=== PATIENT | male | born 1975 | race Two or more races ===

== ENCOUNTER 2024-09-19 15:45 | Inpatient (IN) | payer MEDICAID, OTHER ==
[~2024-09-19] VITALS: Ht 180.3 cm; Wt 75.2 kg
[2024-09-19] MEDS ORDERED: KETOROLAC TROMETH 60MG/2ML VIAL IM ONE (16:15)
--- NOTE | 2024-09-19 16:15 | ED.PDOC ---
GI ASSESSMENT HPI Comments 49 y/o M, with no prior medical history presents to the ED for CC of abdominal pain. Patient states, that he has been experiencing suprapubic abdominal pain that radiates to his bilateral lower back x1week. Patient complains of current 03/14 pain. Patient comments, that he has been taking Tylenol extra strength; with no relief. Patient denies nausea, vomiting, diarrhea, change in diet, fever, or chills. No other associated symptoms, modifiers, recent injuries or sick contacts present at this time. Time Seen by MD: 16:00 Reviewed Notes: Nurses Notes, Medications, Allergies Allergies: Coded Allergies: NO KNOWN ALLERGIES (Unverified , 09/19/24) Information Source: Patient Timing: Weeks Duration: Since onset Prehospital treatment: None Quality: Burning Vomitus: None Stool: Normal Severity: Moderate Recent: None Recent Hx of: None Pain Location: Suprapubic Modifying Factors: Nothing Associated sign and symptoms: None Past Medical History PAST MEDICAL HISTORY: Denies Surgical History: Denies all surgeries Family History Family History: Unknown Social History Smoker: Non-Smoker Alcohol: Denies ETOH Use Drugs: Denies Drug Use Lives In: Home Constitutional: denies: chills, diaphoresis, fatigue, fever, malaise, sweats, weakness, others EENTM: denies: blurred vision, double vision, ear bleeding, ear discharge, ear drainage, ear pain, ear ringing, eye pain, eye redness, hearing loss, mouth pain, mouth swelling, nasal discharge, nose bleeding, nose congestion, nose pain, photophobia, tearing, throat pain, throat swelling, voice changes, others Respiratory: denies: cough, hemoptysis, orthopnea, SOB at rest, shortness of breath, SOB with excertion, stridor, wheezing, others Cardiovascular: denies: chest pain, dizzy spells, diaphoresis, Dyspnea on exertion, edema, irregular heart beat, left arm pain, lightheadedness, palpitations, PND, syncope, others Gastrointestinal: reports: abdominal pain; denies: abdomen distended, blood streaked bowels, constipated, diarrhea, dysphagia, difficulty swallowing, hematemesis, melena, nausea, poor appetite, poor fluid intake, rectal bleeding, rectal pain, vomiting, others Genitourinary: reports: flank pain; denies: burning, dysuria, frequency, hematuria, incontinence, penile discharge, penile sore, pain, testicle pain, testicle swelling, urgency, others Neurological: denies: dizziness, fainting, headache, left sided numbness, left sided weakness, numbness, paresthesia, pre-existing deficit, right sided numbness, right sided weakness, seizure, speech problems, tingling, tremors, weakness, others Musculoskeletal: reports: back pain; denies: gout, joint pain, joint swelling, muscle pain, muscle stiffness, neck pain, others Integumetry: denies: bruises, change in color, change in hair/nails, dryness, laceration, lesions, lumps, rash, wounds, others Allergic/Immunocompromised: denies: Difficulty Healing, Frequent Infections, Hives, Itching, others Hematologic/Lymphatic: denies: anemia, blood clots, easy bleeding, easy bruising, swollen glands, others Endocrine: denies: excessive hunger, excessive sweating, excessive thirst, excessive urination, flushing, intolerance to cold, intolerance to heat, unexplained weight gain, unexplained weight loss, others Psychiatric: denies: anxiety, bipolar disorder, depression, hopeless, panic disorder, schizophrenia, sleepless, suicidal, others All Other Systems: Reviewed and Negative Physical Exam General Appearance: Moderate Distress (Moderate distress due to bilateral flank and abdominal pain concerns.), Normal HEENT: Normal ENT Inspection, Pharynx Normal, TMs Normal Neck: Full Range of Motion, Non-Tender, Normal, Normal Inspection Respiratory: Chest Non-Tender, Lungs Clear, No Accessory Muscle Use, No Respiratory Distress, Normal Breath Sounds Cardiovascular: No Edema, No JVD, No Murmur, No Gallop, Normal Peripheral Pulses, Regular Rate/Rhythm Breast Exam: Deferred Gastrointestinal: Other ( Diffuse bilateral flank pain extending into the abdomen. No definitive CVA tenderness. No pulsatile masses. No signs of trauma.) Genitalia: Deferred Pelvic: Deferred Rectal: Deferred Extremities: No calf tenderness, Normal capillary refill, Normal inspection, Normal range of motion, Non-tender, No pedal edema Neurologic: Alert, No Motor Deficits, Normal Affect, Normal Mood, No Sensory Deficits Cerebellar Function: Normal Reflexes: Normal Skin: Dry, Normal Color, Warm Lymphatic: No Adenopathy Was a procedure done? Was a procedure done?: No GI differential Dx Differential Diagnosis: Appendicitis, Cholangitis, Cholecystitis, Pancreatitis, Urolithiasis, Kidney Stone, Other ( Hyperglycemia, DKA) X-Ray, Labs, Meds, VS Vital Signs Date Time Temp Pulse Resp B/P (MAP) Pulse Ox O2 Delivery O2 Flow Rate FiO2 09/19/24 16:25 96.2 111 20 158/129 (139) 98 96.2 Lab Test 09/19/24 16:24 09/19/24 16:11 Range/Units White Blood Count 10.4 4.4-10.8 10^3/uL Red Blood Count 5.84 4.5-5.90 10^6/uL Hemoglobin 18.1 H 13.5-17.5 g/dL Hematocrit 50.0 41.0-53.0 % Mean Corpuscular Volume 85.6 80.0-100.0 fL Mean Corpuscular Hemoglobin 31.0 28.0-32.0 pg Mean Corpuscular Hemoglobin Concent 36.2 H 32.0-36.0 g/dL Red Cell Distribution Width 13.3 11.8-14.3 % Platelet Count 340 140-450 10^3/uL Mean Platelet Volume 8.1 6.9-10.8 fL Neutrophils (%) (Auto) 74.0 37.0-80.0 % Lymphocytes (%) (Auto) 21.1 10.0-50.0 % Monocytes (%) (Auto) 3.9 0.0-12.0 % Eosinophils (%) (Auto) 0.4 0.0-7.0 % Basophils (%) (Auto) 0.6 0.0-2.0 % Neutrophils # (Auto) 7.7 1.6-8.6 10 ^3/uL Lymphocytes # (Auto) 2.2 0.4-5.4 10 ^3/uL Monocytes # (Auto) 0.4 0-1.3 10 ^3/uL Eosinophils # (Auto) 0 0-0.8 10 ^3/uL Basophils # (Auto) 0.1 0-0.2 10 ^3/uL Nucleated Red Blood Cells 0.1 % Sodium Level 130 L 136-145 mmol/L Potassium Level 3.9 3.5-5.1 mmol/L Chloride Level 94 L 98-107 mmol/L Carbon Dioxide Level 26 20-31 mmol/L Anion Gap 10 5-15 Blood Urea Nitrogen 14 9-23 mg/dL Creatinine 1.06 0.700-1.30 mg/dL Glomerular Filtration Rate Calc 86 >90 mL/min BUN/Creatinine Ratio 13.2 10.0-20.0 Serum Glucose 562 *H 74-106 mg/dL Calcium Level 10.1 8.7-10.4 mg/dL Lipase 34 12-53 U/L Urine Color Light-yellow Yellow Urine Clarity Clear Clear Urine pH 5.0 5.0-9.0 Urine Specific [place] 1.036 H 1.001-1.035 Urine Protein Negative Negative Urine Ketones Trace Negative Urine Blood Negative Negative /uL Urine Nitrite Negative Negative Urine Bilirubin Negative Negative Urine Urobilinogen Normal Negative mg/dL Urine Leukocyte Esterase Negative Negative /uL Urine RBC 1 0 - 3 /hpf Urine Microscopic WBC < 1 0-3 /HPF Urine Squamous Epithelial Cells None seen <5 /hpf Urine Bacteria None seen None Seen /hpf Urine Glucose 4+ H Normal mg/dL [place] [id number] Ph: [phone] DIAGNOSTIC IMAGING Diagnostic Imaging Report : [id number] Signed PATIENT: RAFA POWERSCCT: [id number] UNIT: [id number] : 1975 LOC: ER ROOM / BED: / AGE / SEX: 49 / M ADM STATUS: REG ER SERVICE [id number] ORDERING PHYSICIAN: JOSEPH DWYER PAC PROCEDURE(s): ABPL - CT AB PEL WO CON-NO ORAL OR IV REASON: Diffuse abdominal pain ORDER NUMBER(s): [id number], ACCESSION NUMBER(s): [id number] Exam: CT CT AB PEL WO CON-NO ORAL OR IV History: Diffuse abdominal pain Comparison Study: None available at time of dictation. TECHNIQUE: Multidetector CT of the abdomen was performed from lung bases to pubic symphysis. Imaging was performed without IV contrast. Axial, coronal and sagittal multiplanar reformats were obtained from the axial data set by the technologist. Radiation Dose Information: CT Dose: CTDI volume is 7.3 mGy. Dose-length product is 421.91 mGy*cm FINDINGS: Evaluation of solid organs is limited due to lack of intravenous contrast use. Findings: Lung Bases: No acute or significant lung base finding. Normal heart size. No pleural or pericardial effusion. Liver: The liver is normal in size. No focal lesions. Gallbladder and Biliary Tree: Unremarkable Spleen: Unremarkable Pancreas: The pancreas is grossly normal in appearance. Adrenal Glands: Unremarkable Kidneys: Kidneys are grossly normal without calculi or hydronephrosis. Bladder: Grossly unremarkable for degree of distention. Bowel: The stomach is grossly normal in appearance. Small bowel and colon are normal in caliber and distribution. The appendix is not visualized; however, no secondary findings of acute appendicitis identified. Ascites: Absent Lymphadenopathy: No mesenteric, retroperitoneal or periportal lymphadenopathy. Abdominal Wall and Mesentery: Unremarkable. Vasculature: The visualized abdominal aorta is normal in size and caliber. Evaluation of abdominal and pelvic vessels is limited due to lack of intravenous contrast. Pelvic Organs: Unremarkable Musculoskeletal: No aggressive focal bony lesions, acute fractures or dislocation. Soft tissues: Unremarkable IMPRESSION: 1. No abnormally distended colon or small bowel to suggest bowel obstruction. Stool is noted throughout the colon. 2. No calcified gallstones 3. No nephrolithiasis or hydronephrosis. 4. No free air or free fluid. Radiation optimization: All CT scans at this facility use at least one of these dose optimization techniques: automated exposure control mA and/or kV adjustment per patient size (includes targeted exams where dose is matched to clinical indication) or iterative reconstruction. ATED BY: HAYLEY TSE Jr., DO DICTATED DATE/TIME: 09/19/241655 SIGNED BY: HAYLEY TSE Jr., SIGNED DATE/TIME: 09/19/241655 CC: X-Ray, Labs, Meds, VS Comment All studies performed the ED were evaluated by me personally. Patient's serum laboratories revealed a hyponatremia state as well as a significant hyperglycemic state. Patient will be admitted for Electrolyte management, blood sugar stabilization and assistance with proper diabetic medication management. Time of 1ST Reevaluation: 23:42 Reevaluation 1ST: Improved Consultation: PCP Patient Education/Counseling: Diagnosis, Treatment Family Education/Counseling: Diagnosis, Treatment, No Family Present Departure 1 Departure Time of Disposition: 23:42 Impression: Primary Impression: Hyperglycemia Disposition: 09 ADMITTED INPATIENT Condition: Stable Discharged With: Self Critical Care Note Critical Care Time?: No Stability Stability form required: No Heart Score Heart Score: Heart Score Response (Comments) Value History N/A 0 EKG N/A 0 Age N/A 0 Risk Factors N/A 0 Troponin N/A 0 Total 0 I personally scribed for JOSEPH DWYER PAC ([email or web address]) on 09/19/24 at 16:15. Electronically submitted by Alesha Ta ([email or web address]). I personally scribed for JOSEPH DWYER PAC ([email or web address]) on 09/19/24 at 17:03. Electronically submitted by Alesha Ta [email or web address]). JOSEPH DWYER PAC Sep 19, 2024 16:15
[2024-09-19 16:39] LABS: Urine Bacteria None Seen /hpf (None Seen)
[2024-09-19 16:48] LABS: Basophils # (auto) 0.1 10 ^3/uL (0-0.2); Basophils % (auto) 0.6 % (0.0-2.0); Eosinophils # (auto) 0 10 ^3/uL (0-0.8); Eosinophils % (auto) 0.4 % (0.0-7.0); Hemoglobin 18.1 g/dL (13.5-17.5); Lymphocytes # (auto) 2.2 10 ^3/uL (0.4-5.4); Lymphocytes % (auto) 21.1 % (10.0-50.0); Mean Corpuscular Hgb Conc. 36.2 g/dL (32.0-36.0); Mean Corpuscular Volume 85.6 fL (80.0-100.0); Monocytes # (auto) 0.4 10 ^3/uL (0-1.3); Monocytes % (auto) 3.9 % (0.0-12.0); Neutrophils # (auto) 7.7 10 ^3/uL (1.6-8.6); Nucleated Red Blood Cells % 0.1 %; Platelet Count (auto) 340 10^3/uL (140-450); Red Blood Cells 5.84 10^6/uL (4.5-5.90); Red Cell Distribution Width 13.3 % (11.8-14.3); White Blood Cell 10.4 10^3/uL (4.4-10.8)
[2024-09-19 16:49] LABS: Urine Blood Negative /uL (Negative); Urine Clarity Clear (Clear); Urine Color Light-Yellow (Yellow); Urine Protein, UAD Negative (Negative); Urine Specific Gravity 1.036 (1.001-1.035); Urine Squamous Epithelial Cell None Seen /hpf (<5); Urine Urobilinogen Normal (Negative); Urine WBC < 1 /HPF (0-3)
[2024-09-19 16:57] LABS: Potassium 3.9 mmol/L (3.5-5.1)
[2024-09-19 16:58] LABS: Anion Gap 10 (5-15); Calcium 10.1 mg/dL (8.7-10.4); Carbon Dioxide 26 mmol/L (20-31)
--- NOTE | 2024-09-19 16:59 | DVH ---
Exam: CT CT AB PEL WO CON-NO ORAL OR IV History: Diffuse abdominal pain Comparison Study: None available at time of dictation. TECHNIQUE: Multidetector CT of the abdomen was performed from lung bases to pubic symphysis. Imaging was performed without IV contrast. Axial, coronal and sagittal multiplanar reformats were obtained fr om the axial data set by the technologist. Radiation Dose Information: CT Dose: CTDI volume is 7.3 mGy. Dose-length product is 421.91 mGy*cm FINDINGS: Evaluation of solid organs is limited due to lack of intravenous contrast use. Findings: Lung Bases: No acute or significant lung base finding. Normal heart size. No pleural or pericardial effusion. Liver: The liver is normal in size. No focal lesions. Gallbladder and Biliary Tree: Unremarkable Spleen: Unremarkable Pancreas: The pancreas is grossly normal in appearance. Adrenal Glands: Unremarkable Kidneys: Kidneys are grossly normal without calculi or hydronephrosis. Bladder: Grossly unremarkable for degree of distention. Bowel: The stomach is grossly normal in appearance. Small bowel and colon are normal in caliber and d istribution. The appendix is not visualized; however, no secondary findings of acute appendicitis id entified. Ascites: Absent Lymphadenopathy: No mesenteric, retroperitoneal or periportal lymphadenopathy. Abdominal Wall and Mesentery: Unremarkable. Vasculature: The visualized abdominal aorta is normal in size and caliber. Evaluation of abdominal a nd pelvic vessels is limited due to lack of intravenous contrast. Pelvic Organs: Unremarkable Musculoskeletal: No aggressive focal bony lesions, acute fractures or dislocation. Soft tissues: Unremarkable IMPRESSION: 1. No abnormally distended colon or small bowel to suggest bowel obstruction. Stool is noted througho ut the colon. 2. No calcified gallstones 3. No nephrolithiasis or hydronephrosis. 4. No free air or free fluid. Radiation optimization: All CT scans at this facility use at least one of these dose optimization te chniques: automated exposure control mA and/or kV adjustment per patient size (includes targeted exa ms where dose is matched to clinical indication) or iterative reconstruction.
[2024-09-19 17:01] LABS: Chloride 94 mmol/L (98-107); Sodium 130 mmol/L (136-145)
[2024-09-19 17:03] LABS: BUN/Creatinine Ratio 13.2 (10.0-20.0); Blood Urea Nitrogen 14 mg/dL (9-23); Lipase 34 U/L (12-53)
[2024-09-19 17:18] LABS: Glucose 562 mg/dL (74-106)
--- NOTE | 2024-09-19 23:30 | DVHHPRES ---
History of Present Illness Resident Creating Document: MICHELLE HARRIS RESIDENT History of Present Illness Patient is a 49-year-old male with past medical history of dyslipidemia and GERD, who comes in due to abdominal pain. According to the patient and at bedside, patient has been experiencing and abdominal pain for the past 1 week, however, pain worsened today which is what prompted this visit to the hospital. He describes the pain as 10/10, constant, with radiation to bilateral flanks. He notes eating makes the pain worse, pain is relieved by taking medication. Of note, patient has been taking 800 mg of ibuprofen up to 4 times per day for the past 3 weeks. On review of systems patient is complaining of chills, shortness of breath, dysuria, urinary frequency, polydipsia, polyphagia. CT abdomen pelvis showed no abnormally distended colon or small bowel to suggest bowel obstruction. Stool was noted throughout the colon. No calcified gallstones. No nephrolithiasis or hydronephrosis. No free air or free fluid. Past Medical History Dyslipidemia, GERD Past Surgical History Denies Smoke: No ALCOHOL: none Drugs: None Review of Systems Constitutional: Yes: Chills; No: Fever, Sweats, Weakness, Malaise, Other Eyes: No: Pain, Vision change, Conjunctivae inflammation, Eyelid inflammation, Other, Redness ENT: No: Ear pain, Ear discharge, Nose pain, Nose discharge, Nose congestion, Mouth pain, Mouth swelling, Throat pain, Throat swelling, Other Respiratory: Shortness of breath; No: Cough, Dry, SOB with excertion, Wheezing, Hemoptysis, Pleuritic Pain, Sputum, Wheezing, Other Cardiovascular: No: Chest Pain, Palpitations, Orthopnea, Paroxysmal Noc. Dyspnea, Edema, Lt Headedness, Other Gastrointestinal: No: Nausea, Vomiting, Abdominal Pain, Diarrhea, Constipation, Melena, Hematochezia, Other Genitourinary: Dysuria, Frequency; No Incontinence, No Hematuria, No Retention, No Other Musculoskeletal: No: other, neck pain, shoulder pain, arm pain, back pain, hand pain, leg pain, foot pain Skin: No: Rash, Lesions, Jaundice, Bruising, Other Neurological: No: Weakness, Numbness, Incoordination, Change in speech, Confusion, Seizures, Other Allergies: Coded Allergies: NO KNOWN ALLERGIES (Unverified , 09/19/24) Exam Vital Signs Vital Signs Date Time Temp Pulse Resp B/P (MAP) Pulse Ox O2 Delivery O2 Flow Rate FiO2 09/19/24 16:25 96.2 111 20 158/129 (139) 98 96.2 General Appearance: Alert, Oriented X3, Cooperative, No acute distress HEENT: Atraumatic, PERRLA, EOMI, Other (Dry mucous membranes) Respiratory: Clear to auscultation, Normal air movement Cardiovascular: Regular rate, Normal S1, Normal S2 Abdominal: Normal bowel sounds, Other (Mild midepigastric tenderness to palpation) Extremities: No edema, Normal pulses Skin: No rashes, No significant lesion Neuro: Normal gait, Normal speech, Strength at 5/5 X4 ext, Sensation intact Psych/Mental Status: Mental status NL, Mood NL Labs/Xrays Labs Test 09/19/24 16:24 09/19/24 16:11 Range/Units White Blood Count 10.4 4.4-10.8 10^3/uL Red Blood Count 5.84 4.5-5.90 10^6/uL Hemoglobin 18.1 H 13.5-17.5 g/dL Hematocrit 50.0 41.0-53.0 % Mean Corpuscular Volume 85.6 80.0-100.0 fL Mean Corpuscular Hemoglobin 31.0 28.0-32.0 pg Mean Corpuscular Hemoglobin Concent 36.2 H 32.0-36.0 g/dL Red Cell Distribution Width 13.3 11.8-14.3 % Platelet Count 340 140-450 10^3/uL Mean Platelet Volume 8.1 6.9-10.8 fL Neutrophils (%) (Auto) 74.0 37.0-80.0 % Lymphocytes (%) (Auto) 21.1 10.0-50.0 % Monocytes (%) (Auto) 3.9 0.0-12.0 % Eosinophils (%) (Auto) 0.4 0.0-7.0 % Basophils (%) (Auto) 0.6 0.0-2.0 % Neutrophils # (Auto) 7.7 1.6-8.6 10 ^3/uL Lymphocytes # (Auto) 2.2 0.4-5.4 10 ^3/uL Monocytes # (Auto) 0.4 0-1.3 10 ^3/uL Eosinophils # (Auto) 0 0-0.8 10 ^3/uL Basophils # (Auto) 0.1 0-0.2 10 ^3/uL Nucleated Red Blood Cells 0.1 % Sodium Level 130 L 136-145 mmol/L Potassium Level 3.9 3.5-5.1 mmol/L Chloride Level 94 L 98-107 mmol/L Carbon Dioxide Level 26 20-31 mmol/L Anion Gap 10 5-15 Blood Urea Nitrogen 14 9-23 mg/dL Creatinine 1.06 0.700-1.30 mg/dL Glomerular Filtration Rate Calc 86 >90 mL/min BUN/Creatinine Ratio 13.2 10.0-20.0 Serum Glucose 562 *H 74-106 mg/dL Calcium Level 10.1 8.7-10.4 mg/dL Lipase 34 12-53 U/L Urine Color Light-yellow Yellow Urine Clarity Clear Clear Urine pH 5.0 5.0-9.0 Urine Specific [place] 1.036 H 1.001-1.035 Urine Protein Negative Negative Urine Ketones Trace Negative Urine Blood Negative Negative /uL Urine Nitrite Negative Negative Urine Bilirubin Negative Negative Urine Urobilinogen Normal Negative mg/dL Urine Leukocyte Esterase Negative Negative /uL Urine RBC 1 0 - 3 /hpf Urine Microscopic WBC < 1 0-3 /HPF Urine Squamous Epithelial Cells None seen <5 /hpf Urine Bacteria None seen None Seen /hpf Urine Glucose 4+ H Normal mg/dL Assessment/Plan Assessment/Plan Severe uncontrolled hyperglycemia without DKA or HHS Measured serum osmolality 311, calculated serum osmolality 296 Newly diagnosed diabetes Hypertension? - IV NS 1 L bolus, followed by IV NS at 100 cc/hour - insulin Lantus 11 units q.p.m. - insulin lispro 3 units t.i.d. before meals - aggressive sliding scale insulin - amlodipine 5 mg GERD Acute midepigastric abdominal pain, PUD can not be ruled out - CT abdomen pelvis:No abnormally distended colon or small bowel to suggest bowel obstruction. Stool is noted throughout the colon. No calcified gallstones No nephrolithiasis or hydronephrosis. No free air or free fluid. - IV Protonix 40 mg b.i.d. DVT prophylaxis: SCDs Goals of care: Full code, discussed for >16 minutes on 09/20/2024 Plan discussed with patient Plan discussed with Dr. Perales Plan discussed with: Patient, Spouse, Other (RN) Date of Service: Sep 19, 2024 Billing Provider: ROBERT PERALES MD Common Visit Codes: 41014-[id number] INP/OBS CARE (HIGH) MICHELLE HARRIS RESIDENT Sep 19, 2024 23:30 ROBERT PERALES MD Sep 20, 2024 10:13
[2024-09-20] MEDS: cloNIDine HCL 0.1 MG TAB PO ONE (00:36)
[2024-09-20] MEDS: SODIUM CHLORIDE 0.9% 1,000 ML IV ONE ×2 (00:39→09:30)
[2024-09-20] MEDS: SODIUM CHLORIDE 0.9% 1,000 ML IV SCH ×2 (00:45→09:30)
[2024-09-20] MEDS ORDERED: DEXTROSE (50%) 50ML SYRG IV PRN (00:45)
[2024-09-20 00:52] VITALS: PULSE 84; RESP 18; O2SAT 94
[2024-09-20] MEDS: InsuLIN REG 1unit/0.01ml Soln (100units/ml) IV ONE (00:57)
[2024-09-20] MEDS: amLODIPine BESYLATE 5 MG TAB PO ONE ×2 (00:57→05:00)
[2024-09-20] MEDS: INSULIN LANTUS (GLARGINE) 1 /0.01ml (100units/ml) SC SCH ×2 (01:04→10:41)
[2024-09-20] MEDS: PANTOPRAZOLE 40 MG/10 ML VIAL INJ IV SCH (01:05)
[2024-09-20] MEDS: ACETAMINOPHEN 325 MG TAB PO PRN (01:05)
[2024-09-20 01:32] LABS: Alanine Aminotransferase 22 U/L (7-40); Albumin 4.2 g/dL (3.2-4.8); Alkaline Phosphatase 108 U/L (46-116); Anion Gap 8 (5-15); BUN/Creatinine Ratio 13.1 (10.0-20.0); Blood Urea Nitrogen 11 mg/dL (9-23); Calcium 9.1 mg/dL (8.7-10.4); Carbon Dioxide 25 mmol/L (20-31); Chloride 100 mmol/L (98-107); Potassium 3.6 mmol/L (3.5-5.1); Total Protein 6.6 g/dL (5.7-8.2)
[2024-09-20 01:33] LABS: Bilirubin, Total 0.9 mg/dL (0.2-1.0)
[2024-09-20 01:36] LABS: Aspartate Aminotransferase < 8 U/L (13-40); Glucose 328 mg/dL (74-106); Sodium 133 mmol/L (136-145)
[2024-09-20 03:35] VITALS: BP 144/98; PULSE 68; RESP 17; TEMP 97.6; O2SAT 99
[2024-09-20 04:00] VITALS: PULSE 67
[2024-09-20] MEDS: ACCU-CHEK COMFORT CURVE STRIP VI SCH (04:12)
[2024-09-20] MEDS: InsuLIN REG 1unit/0.01ml Soln (100units/ml) SC SCH (04:16)
[2024-09-20 06:17] LABS: Basophils # (auto) 0.1 10 ^3/uL (0-0.2); Basophils % (auto) 0.7 % (0.0-2.0); Eosinophils # (auto) 0.1 10 ^3/uL (0-0.8); Eosinophils % (auto) 1.3 % (0.0-7.0); Hematocrit 42.6 % (41.0-53.0); Hemoglobin 15.3 g/dL (13.5-17.5); Lymphocytes # (auto) 3.2 10 ^3/uL (0.4-5.4); Lymphocytes % (auto) 41.5 % (10.0-50.0); Mean Corpuscular Hemoglobin 30.7 pg (28.0-32.0); Mean Corpuscular Hgb Conc. 35.9 g/dL (32.0-36.0); Mean Corpuscular Volume 85.6 fL (80.0-100.0); Monocytes # (auto) 0.5 10 ^3/uL (0-1.3); Monocytes % (auto) 6.7 % (0.0-12.0); Neutrophils # (auto) 3.9 10 ^3/uL (1.6-8.6); Neutrophils % (auto) 49.8 % (37.0-80.0); Nucleated Red Blood Cells % 0.2 %; Platelet Count (auto) 268 10^3/uL (140-450); Red Blood Cells 4.98 10^6/uL (4.5-5.90); Red Cell Distribution Width 13.6 % (11.8-14.3); White Blood Cell 7.8 10^3/uL (4.4-10.8)
[2024-09-20 06:35] LABS: Alanine Aminotransferase 21 U/L (7-40); Alkaline Phosphatase 93 U/L (46-116); Anion Gap 8 (5-15); Aspartate Aminotransferase < 8 U/L (13-40); BUN/Creatinine Ratio 14.5 (10.0-20.0); Bilirubin, Total 0.9 mg/dL (0.2-1.0); Blood Urea Nitrogen 12 mg/dL (9-23); Calcium 9.1 mg/dL (8.7-10.4); Carbon Dioxide 25 mmol/L (20-31); Chloride 102 mmol/L (98-107); Glucose 323 mg/dL (74-106); Potassium 3.8 mmol/L (3.5-5.1); Sodium 135 mmol/L (136-145); Total Protein 6.2 g/dL (5.7-8.2)
[2024-09-20] MEDS: INSULIN LISPRO (HUMAN) 100 UNITS/ML ML SC SCH (07:06)
[2024-09-20 08:20] VITALS: BP 127/82; PULSE 72; RESP 18; TEMP 97.9; O2SAT 98
[2024-09-20] MEDS: amLODIPine BESYLATE 5 MG TAB PO SCH (09:22)
[2024-09-20] MEDS: ENOXAPARIN SOD 40 MG/0.4 ML SYRINGE SC ONE (11:21)
[2024-09-20] MEDS: D5W/SOD CHL 0.45% 1,000 ML IV SCH (11:30)
[2024-09-20 13:00] VITALS: BP 115/74; PULSE 71; RESP 20; TEMP 97.5; O2SAT 98
[2024-09-20] MEDS ORDERED: METF-1145 PO (14:29)
[2024-09-20] MEDS ORDERED: PANT40T PO (14:29)
[2024-09-20] MEDS ORDERED: LINA5TAB PO (14:29)
--- NOTE | 2024-09-20 14:33 | DVHDSRES ---
Discharge Summary Date of Admission Resident Creating Document: MICHELLE HARRIS RESIDENT Sep 19, 2024 at 23:28 Date of Discharge: Sep 20, 2024 Admitting Diagnosis Intractable abdominal pain likely due to uncontrolled diabetes med Labs/Diagnostic Data: Laboratory Results Test 09/20/24 12:03 09/20/24 05:53 09/20/24 01:01 09/19/24 16:24 POC Glucose 94 mg/dl (70-106) White Blood Count 7.8 10^3/uL (4.4-10.8) Red Blood Count 4.98 10^6/uL (4.5-5.90) Hemoglobin 15.3 g/dL (13.5-17.5) Hematocrit 42.6 % (41.0-53.0) Mean Corpuscular Volume 85.6 fL (80.0-100.0) Mean Corpuscular Hemoglobin 30.7 pg (28.0-32.0) Mean Corpuscular Hemoglobin Concent 35.9 g/dL (32.0-36.0) Red Cell Distribution Width 13.6 % (11.8-14.3) Platelet Count 268 10^3/uL (140-450) Mean Platelet Volume 8.0 fL (6.9-10.8) Neutrophils (%) (Auto) 49.8 % (37.0-80.0) Lymphocytes (%) (Auto) 41.5 % (10.0-50.0) Monocytes (%) (Auto) 6.7 % (0.0-12.0) Eosinophils (%) (Auto) 1.3 % (0.0-7.0) Basophils (%) (Auto) 0.7 % (0.0-2.0) Neutrophils # (Auto) 3.9 10 ^3/uL (1.6-8.6) Lymphocytes # (Auto) 3.2 10 ^3/uL (0.4-5.4) Monocytes # (Auto) 0.5 10 ^3/uL (0-1.3) Eosinophils # (Auto) 0.1 10 ^3/uL (0-0.8) Basophils # (Auto) 0.1 10 ^3/uL (0-0.2) Nucleated Red Blood Cells 0.2 % Sodium Level 135 mmol/L (136-145) Potassium Level 3.8 mmol/L (3.5-5.1) Chloride Level 102 mmol/L (98-107) Carbon Dioxide Level 25 mmol/L (20-31) Anion Gap 8 (5-15) Blood Urea Nitrogen 12 mg/dL (9-23) Creatinine 0.83 mg/dL (0.700-1.30) Glomerular Filtration Rate Calc 107 mL/min (>90) BUN/Creatinine Ratio 14.5 (10.0-20.0) Serum Glucose 323 mg/dL (74-106) Hemoglobin A1c 13.3 % A1C (<5.7) Calcium Level 9.1 mg/dL (8.7-10.4) Total Bilirubin 0.9 mg/dL (0.2-1.0) Aspartate Amino Transferase (AST) < 8 U/L (13-40) Alanine Aminotransferase (ALT) 21 U/L (7-40) Alkaline Phosphatase 93 U/L (46-116) Total Protein 6.2 g/dL (5.7-8.2) Albumin 4.0 g/dL (3.2-4.8) Lactic Acid Level 1.2 mmol/L (0.4-2.0) Serum Osmolality 311 mOsm/kg (278-298) Lipase 34 U/L (12-53) Test 09/19/24 16:11 Urine Color Light-yellow (Yellow) Urine Clarity Clear (Clear) Urine pH 5.0 (5.0-9.0) Urine Specific [place] 1.036 (1.001-1.035) Urine Protein Negative (Negative) Urine Ketones Trace (Negative) Urine Blood Negative /uL (Negative) Urine Nitrite Negative (Negative) Urine Bilirubin Negative (Negative) Urine Urobilinogen Normal mg/dL (Negative) Urine Leukocyte Esterase Negative /uL (Negative) Urine RBC 1 /hpf (0 - 3) Urine Microscopic WBC < 1 /HPF (0-3) Urine Squamous Epithelial Cells None seen /hpf (<5) Urine Bacteria None seen /hpf (None Seen) Urine Glucose 4+ mg/dL (Normal) Other Laboratory Tests 09/20/24 05:53 Brief Hx & Hospital Course: Patient is a 49-year-old male with past medical history of dyslipidemia and GERD, who comes in due to abdominal pain. According to the patient and at bedside, patient has been experiencing and abdominal pain for the past 1 week, however, pain worsened today which is what prompted this visit to the hospital. He describes the pain as 10/10, constant, with radiation to bilateral flanks. He notes eating makes the pain worse, pain is relieved by taking medication. Of note, patient has been taking 800 mg of ibuprofen up to 4 times per day for the past 3 weeks. On review of systems patient is complaining of chills, shortness of breath, dysuria, urinary frequency, polydipsia, polyphagia. CT abdomen pelvis showed no abnormally distended colon or small bowel to suggest bowel obstruction. Stool was noted throughout the colon. No calcified gallstones. No nephrolithiasis or hydronephrosis. No free air or free fluid. Hospital course-Patient is a 49-year-old male with past medical history of dyslipidemia and GERD, who comes in due to abdominal pain. According to the patient and at bedside, patient has been experiencing and abdominal pain for the past 1 week, however, pain worsened today which is what prompted this visit to the hospital. He describes the pain as 10/10, constant, with radiation to bilateral flanks. He notes eating makes the pain worse, pain is relieved by taking medication. Of note, patient has been taking 800 mg of ibuprofen up to 4 times per day for the past 3 weeks. On review of systems patient is complaining of chills, shortness of breath, dysuria, urinary frequency, polydipsia, polyphagia. CT abdomen pelvis showed no abnormally distended colon or small bowel to suggest bowel obstruction. Stool was noted throughout the colon. No calcified gallstones. No nephrolithiasis or hydronephrosis. No free air or free fluid. Initial lab workup revealed HGB A1c 13.3, sodium 130 likely pseudohyponatremia, CT abdomen was still in colon. Urinalysis glucose 4+ POC 340. Patient was treated conservatively with insulin and IV fluid. Patient's symptoms improved. Patient's blood sugar came below 200. Patient is being discharged on metformin ER 500 mg p.o. b.i.d., Tradjenta 5 mg p.o. daily. Patient's med were sent to the pharmacy electronically. Patient was hemodynamically stable on discharge. Patient was advised to follow up with the primary care physician in 1 week. Patient was hemodynamically stable on discharge. Assessment Severe uncontrolled hyperglycemia without DKA or HHS Measured serum osmolality 311, calculated serum osmolality 296 Newly diagnosed diabetes Hypertension? GERD Acute midepigastric abdominal pain, PUD can not be ruled out Pseudo hyponatremia Plan Continue metformin ER 500 mg p.o. b.i.d. Tradjenta 5 mg p.o. daily Pantoprazole 4 mg p.o. daily for 2 weeks Please follow up with the primary care physician in 1 week Carbohydrate consistent diet, low-carbohydrate Please avoid dehydration and infection Operations or Procedures [place] [id number] Ph: [phone] DIAGNOSTIC IMAGING Diagnostic Imaging Report : [id number] Signed PATIENT: RAFA POWERSCCT: [id number] UNIT: [id number] : 1975 LOC: ER ROOM / BED: / AGE / SEX: 49 / M ADM STATUS: REG ER SERVICE [id number] ORDERING PHYSICIAN: JOSEPH DWYER PAC PROCEDURE(s): ABPL - CT AB PEL WO CON-NO ORAL OR IV REASON: Diffuse abdominal pain ORDER NUMBER(s): [id number], ACCESSION NUMBER(s): [id number] Exam: CT CT AB PEL WO CON-NO ORAL OR IV History: Diffuse abdominal pain Comparison Study: None available at time of dictation. TECHNIQUE: Multidetector CT of the abdomen was performed from lung bases to pubic symphysis. Imaging was performed without IV contrast. Axial, coronal and sagittal multiplanar reformats were obtained from the axial data set by the technologist. Radiation Dose Information: CT Dose: CTDI volume is 7.3 mGy. Dose-length product is 421.91 mGy*cm FINDINGS: Evaluation of solid organs is limited due to lack of intravenous contrast use. Findings: Lung Bases: No acute or significant lung base finding. Normal heart size. No pleural or pericardial effusion. Liver: The liver is normal in size. No focal lesions. Gallbladder and Biliary Tree: Unremarkable Spleen: Unremarkable Pancreas: The pancreas is grossly normal in appearance. Adrenal Glands: Unremarkable Kidneys: Kidneys are grossly normal without calculi or hydronephrosis. Bladder: Grossly unremarkable for degree of distention. Bowel: The stomach is grossly normal in appearance. Small bowel and colon are normal in caliber and distribution. The appendix is not visualized; however, no secondary findings of acute appendicitis identified. Ascites: Absent Lymphadenopathy: No mesenteric, retroperitoneal or periportal lymphadenopathy. Abdominal Wall and Mesentery: Unremarkable. Vasculature: The visualized abdominal aorta is normal in size and caliber. Evaluation of abdominal and pelvic vessels is limited due to lack of intravenous contrast. Pelvic Organs: Unremarkable Musculoskeletal: No aggressive focal bony lesions, acute fractures or dislocation. Soft tissues: Unremarkable IMPRESSION: 1. No abnormally distended colon or small bowel to suggest bowel obstruction. Stool is noted throughout the colon. 2. No calcified gallstones 3. No nephrolithiasis or hydronephrosis. 4. No free air or free fluid. Radiation optimization: All CT scans at this facility use at least one of these dose optimization techniques: automated exposure control mA and/or kV adjustment per patient size (includes targeted exams where dose is matched to clinical indication) or iterative reconstruction. ATED BY: HAYLEY TSE Jr., DO DICTATED DATE/TIME: 09/19/241655 SIGNED BY: HAYLEY TSE Jr., SIGNED DATE/TIME: 09/19/241655 CC: Condition at Discharge: Stable Final Diagnosis/Problems List Assessment Severe uncontrolled hyperglycemia without DKA or HHS Measured serum osmolality 311, calculated serum osmolality 296 Newly diagnosed diabetes Hypertension? GERD Acute midepigastric abdominal pain, PUD can not be ruled out Discharge Disposition: Home Discharge Instruct/Medications Follow Up/Referral: Please follow up with the primary care physician in 1 week Carbohydrate consistent diet, low-carbohydrate Please avoid dehydration and infection Medications: Continue metformin ER 500 mg p.o. b.i.d. Tradjenta 5 mg p.o. daily Pantoprazole 4 mg p.o. daily for 2 weeks Please follow up with the primary care physician in 1 week Carbohydrate consistent diet, low-carbohydrate Please avoid dehydration and infection Discharge Statement: "Patient was advised to return to the ER or call 911 if any headaches, dizziness, shortness of breath, chest pain, abdominal pain, bleeding, fevers, or worsening of medical condition. Patient was counseled about treatment plan, medications, possible side effects, patientverbalized understanding. All questions were answered to the best of my ability. This discharge took greater then 30 minutes in planning, reviewing documentation, counseling the patient, and discussing with other team members." ASSESSMENT ASSESSMENT Assessment Date of Service: Sep 20, 2024 Billing Provider: CANDY HAHN MD Common Visit Codes: [id number] INP/OBS CARE(HIGH) SHERI OSORIO RESIDENT Sep 20, 2024 14:33 CANDY HAHN MD Sep 25, 2024 01:20
[2024-09-20 15:00] VITALS: BP 115/74; PULSE 71; TEMP 97.7; O2SAT 98
[2024-09-20] MEDS ORDERED: ATORVASTATIN 20 MG TAB PO SCH (22:00)
[2024-09-21] MEDS ORDERED: ENOXAPARIN SOD 40 MG/0.4 ML SYRINGE SC SCH (10:00)
== END 2024-09-20 15:20 | disposition home or self-care (01) | DRG 241 ==
LOC: ER 15:45 → OVERFLOW 23:28
PROVIDERS: ADMIT Student in an Organized Health Care Education/Training Program; ATTEND Student in an Organized Health Care Education/Training Program
DX: K27.3 Acute peptic ulcer, site unspecified, without hemorrhage or perforation (principal); E11.65 Type 2 diabetes mellitus with hyperglycemia; I10 Essential (primary) hypertension; K21.9 Gastro-esophageal reflux disease without esophagitis
CPT/HCPCS: 36415; 74176; 80048; 80053; 81001; 82962; 83036; 83605; 83690; 83930; 85025; G0378; J1815; J2470